=== PATIENT | female | born 1990 | race Asian ===

== ENCOUNTER 2017-11-12 09:52 | Emergency (ER) | payer OTHER ==
[~2017-11-12] VITALS: Ht 162.6 cm; Wt 54.0 kg
[~2017-11-12 09:52] MED LIST: SYNTHROID
[2017-11-12 11:30] VITALS: BP 102/69
[2017-11-12] MEDS ORDERED: DEXAMETHASONE 10 MG/ML VIAL IM ONE (11:30)
[2017-11-12] MEDS ORDERED: KETOROLAC 60MG/2ML VIAL IM ONE (11:30)
== END 2017-11-12 12:06 | disposition home or self-care (01) ==
LOC: ER 10:05
DX: J02.0 Streptococcal pharyngitis (principal); E03.9 Hypothyroidism, unspecified; Z85.850 Personal history of malignant neoplasm of thyroid
CPT/HCPCS: 81025; 87430; 96372; 99284; J1100; J1885

== ENCOUNTER 2018-02-28 09:12 | Emergency (ER) | payer MEDICAID, OTHER ==
[~2018-02-28] VITALS: Ht 157.5 cm; Wt 71.0 kg
[2018-02-28 09:34] VITALS: BP 104/72
== END 2018-02-28 10:54 | disposition home or self-care (01) ==
LOC: ER 09:29
DX: J02.9 Acute pharyngitis, unspecified (principal); F17.200 Nicotine dependence, unspecified, uncomplicated; Z85.850 Personal history of malignant neoplasm of thyroid
CPT/HCPCS: 99283

== ENCOUNTER 2018-07-16 18:30 | Emergency (ER) | payer MEDICAID ==
[~2018-07-16] VITALS: Ht 157.5 cm; Wt 68.0 kg
[2018-07-16] MEDS ORDERED: ONDANSETRON HCL 4MG/2ML INJ IV STA (19:17)
[2018-07-16] MEDS ORDERED: SODIUM CHLORIDE 0.9% 1,000 ML IV ONE (19:17)
[2018-07-16] MEDS ORDERED: MORPHINE SULFATE 4 MG/ML CPJ (NOT FOR IM USE) IV STA (19:17)
[2018-07-16 20:18] LABS: BASOPHILS % 0.4 % (0.0-2.0); CLARITY URINE CLEAR (CLEAR); COLOR URINE YELLOW (YELLOW); EOSINOPHILS % 0.2 % (0.0-5.0); HEMATOCRIT. 37.8 % (36.0-48.0); HEMOGLOBIN. 12.9 g/dL (12.0-16.0); KETONES URINE NEGATIVE (NEGATIVE); LEUKOCYTE ESTERASE URINE NEGATIVE (NEGATIVE); LYMPHOCYTES % 11.6 % (20.0-50.0); MEAN CORPUSCULAR HEMOGLOBIN 29.7 pg (28.0-32.0); MEAN CORPUSCULAR VOLUME 86.9 fL (81.0-99.0); MEAN PLATELET VOLUME 6.6 fl (7.4-10.4); MONOCYTES % 5.4 % (2.0-8.0); NEUTROPHILS % 82.4 % (40.0-76.0); NITRITE URINE NEGATIVE (NEGATIVE); OCCULT BLOOD URINE 3+ (NEGATIVE); PLATELET 314 x1000/uL (130-400); PROTEIN URINE NEGATIVE (NEGATIVE); RED BLOOD CELL COUNT 4.35 mill/uL (4.2-5.4); RED CELL DISTRIBUTION WIDTH 12.4 % (11.6-14.6); SPECIFIC GRAVITY URINE 1.023 (1.005-1.030); UROBILINOGEN URINE 0.2 E.U./dL (0.2-1.0)
[2018-07-16 20:23] LABS: CHLORIDE 105 mEq/L (98-107)
[2018-07-16 20:25] LABS: PARTIAL THROMBOPLASTIN TIME 27.6 sec (23.4-31.0); PROTHROMBIN TIME 9.9 sec (9.1-11.1)
[2018-07-16] MEDS ORDERED: IOHEXOL-300 100 ML BOTTLE ONE (23:30)
[2018-07-16] MEDS ORDERED: PIPERACILLIN/TAZ 3.375G PREMIX 50 ML IV ONE (23:30)
[2018-07-17 04:57] VITALS: BP 105/64
[2018-07-17] MEDS ORDERED: FENTANYL CITRATE/PF 50MCG/ML 2ML VIAL IV PRN ×2 (05:00→06:00)
[2018-07-17] MEDS ORDERED: HYDROMORPHONE HCL/PF 2MG/ML CPJ IV PRN (05:00)
[2018-07-17] MEDS ORDERED: ONDANSETRON HCL 4MG/2ML INJ IV PRN ×2 (05:00→05:45)
[2018-07-17] MEDS ORDERED: PROPOFOL 200MG/20ML VIAL IV ONE (05:15)
[2018-07-17] MEDS ORDERED: SUCCINYLCHOLINE CHLORIDE 200MG/10ML VIAL IV ONE (05:15)
[2018-07-17] MEDS ORDERED: FENTANYL CITRATE/PF 50MCG/ML 2ML VIAL ONE (05:15)
[2018-07-17] MEDS ORDERED: LIDOCAINE HCL/PF 1% 10 MG/ML 5ML VIAL ONE (05:15)
[2018-07-17] MEDS ORDERED: ROCURONIUM BROMIDE 10MG/ML VIAL 5ML IV ONE (05:15)
[2018-07-17] MEDS ORDERED: MIDAZOLAM HCL 2 MG/2 ML VIAL ONE (05:16)
[2018-07-17] MEDS ORDERED: PIPERACILLIN/TAZ 3.375G PREMIX 50 ML IV SCH (05:45)
[2018-07-17] MEDS ORDERED: DEXT 5%/0.45% NACL 1000ML 1,000 ML IV SCH (05:45)
[2018-07-17] MEDS ORDERED: DIPHENHYDRAMINE 50MG/ML VIAL IV PRN (05:45)
[2018-07-17] MEDS ORDERED: MORPHINE SULFATE 4 MG/ML CPJ (NOT FOR IM USE) IV PRN (05:45)
[2018-07-17] MEDS ORDERED: ACETAMINOPHEN 650MG SUPP PR PRN (05:45)
[2018-07-17] MEDS ORDERED: BUPIVACAINE HCL 0.5% (5MG/ML) 50ML ONE (05:48)
[2018-07-17] MEDS ORDERED: SKIN ADHESIVE 0.7 GM EA TOP ONE (05:48)
[2018-07-17] MEDS ORDERED: DEXAMETHASONE 4MG/ML 1ML VIAL ONE (06:15)
[2018-07-17] MEDS ORDERED: ONDANSETRON HCL 4MG/2ML INJ ONE (06:15)
[2018-07-17] MEDS ORDERED: NEOSTIGMINE METHYLSULFATE 1MG/ML 10 ML VIAL ONE (06:25)
[2018-07-17] MEDS ORDERED: GLYCOPYRROLATE 0.2 MG/ML 2ML VIAL ONE (06:26)
[2018-07-17] MEDS ORDERED: KETOROLAC 30MG/ML VIAL ONE (06:30)
[2018-07-17] MEDS ORDERED: MEPERIDINE HCL/PF 25MG/ML CPJ IV PRN (07:15)
[2018-07-17] MEDS ORDERED: FAMOTIDINE 20MG/2ML VIAL IV SCH (09:00)
== END 2018-07-17 06:05 ==
LOC: ER 18:30 → CANRESERV 07-17 07:24 → ENRESERV 07-17 07:24 → CANBEDREQ 07-17 16:47
DX: K35.80 Unspecified acute appendicitis (principal); R94.31 Abnormal electrocardiogram [ECG] [EKG]; E03.9 Hypothyroidism, unspecified; F17.200 Nicotine dependence, unspecified, uncomplicated; Z98.890 Other specified postprocedural states
CPT/HCPCS: 36415; 71045; 74177; 76830; 76856; 76857; 80053; 81003; 81025; 83690; 84484; 85025; 85610; 85730; 88304; 93005; 96361; 96365; 96375; 99285; G0168; J0330; J1100; J1885; J2250; J2270; J2405; J2543; J2710; J3010; J3490; J7030; Q9967; Z7610; J2704